=== PATIENT | male | born 1970 | race Hispanic/Latino ===

== ENCOUNTER 2017-07-13 10:51 | Emergency (ER) | payer OTHER ==
[2017-07-13 10:58] VITALS: BP 174/98
[2017-07-13] MEDS ORDERED: AUGMENTIN 875 MG PO ONE (11:12)
--- NOTE | 2017-07-13 11:13 | Emergency Department Report ---
ED Animal Bite HPI - General Chief Complaint: Animal Bite Stated Complaint: ATTACKED BY DOG Time Seen by Provider: 07/13/17 11:08 Source: patient Mode of arrival: Ambulatory Limitations: No Limitations - History of Present Illness Initial Comments: 46-year-old malesignificant past medical history presents with complaint of dog bite to right ankle. Patient states that he was walking with a friend who was walking her dog. Patient states another dog randomly came up and started fighting with the other dog. He got in the middle and was bitten on the right ankle by the stray dog. Patient is not fully familiar with this animal and states it was not initially sure with an retail business development manager. Patient denies injuries to any other body parts other than to right ankle. Unaware of tetanus status. Denies any allergies. Visible large multiple lacerations to right ankle region. Patient states that he made a report with animal control who identified animal and its retail business development manager. MD Complaint: animal bite -: This morning Location: other Right: Ankle Animal: dog Animal Control Notified: Yes Description: unknown animal Mechanism: bite Pain Description: sharp Context: animals fighting Associated Symptoms: none, bleeding - Related Data Patient Tetanus UTD: No Previous Rx's Medication Instructions Recorded Last Taken Type Acetaminophen/Codeine [Tylenol 1 tab PO Q6H PRN #12 tab 07/13/17 Unknown Rx /Codeine # 3 tab] Amoxicillin/K Clav Tab [Augmentin 1 tab PO Q12HR #20 tab 07/13/17 Unknown Rx 875 mg] Bacitracin Zinc Oint [Antibiotic 1 applicatio TP BID #1 oint...g. 07/13/17 Unknown Rx Oint] Ibuprofen [Motrin] 800 mg PO Q8HR PRN #30 tablet 07/13/17 Unknown Rx Allergies Allergy/AdvReac Type Severity Reaction Status Date / Time No Known Allergies Allergy Verified 07/13/17 11:27 ED Review of Systems ROS: Stated complaint: ATTACKED BY DOG Other details as noted in HPI Constitutional: denies: chills, fever Eyes: denies: eye pain, eye discharge, vision change ENT: denies: ear pain, throat pain Respiratory: denies: cough, shortness of breath, wheezing Cardiovascular: denies: chest pain, palpitations Endocrine: no symptoms reported Gastrointestinal: denies: abdominal pain, nausea, diarrhea Genitourinary: denies: urgency, dysuria Musculoskeletal: denies: back pain, joint swelling, arthralgia Skin: denies: rash, lesions Neurological: denies: headache, weakness, paresthesias Psychiatric: denies: anxiety, depression Hematological/Lymphatic: denies: easy bleeding, easy bruising ED Past Medical Hx - Past Medical History Previous Medical History?: No - Surgical History Additional Surgical History: hernia repair - Social History Smoking Status: Current Every Day Smoker Substance Use Type: Marijuana - Medications Home Medications: Home Medications Medication Instructions Recorded Confirmed Last Taken Type Acetaminophen/Codeine [Tylenol 1 tab PO Q6H PRN #12 tab 07/13/17 Unknown Rx /Codeine # 3 tab] Amoxicillin/K Clav Tab [Augmentin 1 tab PO Q12HR #20 tab 07/13/17 Unknown Rx 875 mg] Bacitracin Zinc Oint [Antibiotic 1 applicatio TP BID #1 oint...g. 07/13/17 Unknown Rx Oint] Ibuprofen [Motrin] 800 mg PO Q8HR PRN #30 tablet 07/13/17 Unknown Rx ED Physical Exam - General Limitations: No Limitations General appearance: alert, in no apparent distress - Head Head exam: Present: atraumatic, normocephalic - Eye Eye exam: Present: normal appearance, PERRL, EOMI - ENT ENT exam: Present: mucous membranes moist - Neck Neck exam: Present: normal inspection - Respiratory Respiratory exam: Present: normal lung sounds bilaterally. Absent: respiratory distress - Cardiovascular Cardiovascular Exam: Present: regular rate, normal rhythm. Absent: systolic murmur, diastolic murmur, rubs, gallop - GI/Abdominal GI/Abdominal exam: Present: soft, normal bowel sounds - Rectal Rectal exam: Present: deferred - Extremities Exam Extremities exam: Present: normal inspection - Expanded Lower Extremity Exam Right Knee exam: Present: normal inspection, full ROM Lower Leg exam: Present: normal inspection, full ROM, laceration (27-8 cm vertical lacerations on the right ankle region one on front of ankle one on the back of her ankle.) Ankle exam: Present: full ROM (dorsiflexion and plantar flexion intact on clinical exam), abrasion (abrasion behind the right ankle approximately 2 cm in length deep), laceration Foot/Toe exam: Present: normal inspection, full ROM Neuro vascular tendon exam: Present: no vascular compromise (distal dorsalis pedis and posterior tibial pulses intact) Gait: Positive: antalgic 1 - Laceration here 2 - Laceration here - Back Exam Back exam: Present: normal inspection - Neurological Exam Neurological exam: Present: alert, oriented X3, CN II-XII intact, abnormal gait - Psychiatric Psychiatric exam: Present: normal affect, normal mood - Skin Skin exam: Present: warm, dry, intact, normal color. Absent: rash ED Course Vital Signs 07/13/17 10:53 Temperature 97.7 F Pulse Rate 124 H Respiratory 20 Rate Blood Pressure 174/98 O2 Sat by Pulse 98 Oximetry - Laceration /Wound Repair Right Lower Distal Ankle Wound Location: lower extremity (2 vertical lacerations distal right lower ankle ) Wound Length (cm): 8 Wound's Depth, Shape: into muscle, linear, contused tissue Irrigated w/ Saline (ccs): 1,000 Betadine Prep?: Yes Anesthesia: 1% Lidocaine Volume Anesthetic (ccs): 30 Wound Debrided: minimal Wound Repaired With: sutures Suture Size/Type: 3:0, proline Number of Sutures: 8 Layer Closure?: No Sterile Dressing Applied?: Yes Progress: Bite sites thoroughly irrigated with saline and iodine mixture around and intermittent. Wounds and anesthetized with 2% lidocaine without epinephrine. Good local anesthesia achieved. There are 2 vertical lacerations one on front of ankle 1 embankment ankle approximately 6-8 cm each. Slightly contused tissue. No active hemorrhage. Wounds loosely approximated using Prolene sutures. Procedure tolerated well. Covered with gauze and triple antibiotic ointment afterward. Critical Care Time: Yes Critical care time in (mins) excluding proc time.: 90 Critical care attestation.: If time is entered above; I have spent that time in minutes in the direct care of this critically ill patient, excluding procedure time. A/P: Dog bite right ankle, laceration, puncture wound, abrasion 1-patient states that he discussed the case with animal control informed him that animal has an retail business development manager and can be reliably observed. This is unconfirmed but animal may have its vaccinations. Patient received first dose of rabies vaccine but declined rabies immunoglobulin due to his discussion with animal control. Patient received tetanus vaccination today 2-loose approximation of wound with Prolene sutures. I specifically advised patient to return to the ED for fever or chills. When drainage from wound or erythema spreading around site of wound. 48-72 hour wound check in the ED. sutures to be removed in 10-12 days 3-triple antibiotic ointment superficially, 10 day course of Augmentin, Motrin, [place] when necessary 4- patient is ambulatory without assistance VS: before discharge T 98.7oral, o2 sat 100%, HR 96, BP 145/96, RR 17 I asked police crime scene technician to record these in chart. ED Disposition Clinical Impression: Laceration Dog bite of right ankle Qualifiers: Encounter type: initial encounter Qualified Code(s): S91.051A - Open bite, right ankle, initial encounter Abrasion of ankle Qualifiers: Encounter type: initial encounter Laterality: right Qualified Code(s): S90.511A - Abrasion, right ankle, initial encounter Disposition: TO HOME OR SELFCARE Is pt being admited?: No Does the pt Need Aspirin: No Condition: Stable Instructions: Animal Bite (ED), Suture Care (ED), Puncture Wound (ED), Acute Wound Care (ED), Abrasion (ED) Additional Instructions: 48-72 hour wound check in the ED. sutures to be removed in 10-12 days Prescriptions: Acetaminophen/Codeine [Tylenol /Codeine # 3 tab] 1 tab PO Q6H PRN #12 tab PRN Reason: Pain Amoxicillin/K Clav Tab [Augmentin 875 mg] 1 tab PO Q12HR #20 tab Bacitracin Zinc Oint [Antibiotic Oint] 1 applicatio TP BID #1 oint...g. Ibuprofen [Motrin] 800 mg PO Q8HR PRN #30 tablet PRN Reason: Pain Referrals: PRIMARY CARE, [Primary Care Provider] - 3-5 Days [facility] [Outside] - 3-5 Days Forms: Accompanied Note, Work/School Release Form(ED) Time of Disposition: 13:29
[2017-07-13] MEDS ORDERED: XYLOCAINE 2% INFILTRATI ONE (11:14)
[2017-07-13] MEDS ORDERED: ZOFRAN ODT PO ONE (11:15)
[2017-07-13] MEDS ORDERED: BOOSTRIX IM ONE (11:15)
[2017-07-13] MEDS ORDERED: TRIPLE ANTIBIOTIC TP ONE (11:15)
[2017-07-13] MEDS ORDERED: NORCO 5/325 PO ONE (11:15)
[2017-07-13] MEDS ORDERED: MOTRIN PO ONE (11:16)
[2017-07-13] MEDS ORDERED: RABAVERT RABIES VACCINE(PCEC) IM ONE (11:23)
[2017-07-13] MEDS ORDERED: hyperRAB S/D IM ONE (11:23)
--- NOTE | 2017-07-13 20:19 | XRay Report ---
FINAL REPORT PROCEDURE: XR ANKLE 3+V RT TECHNIQUE: Three-view right ankle HISTORY: dog bite above right ankle COMPARISON: No prior studies are available for comparison. FINDINGS: Mild soft tissue swelling right ankle with soft tissue laceration injury and defects seen medially. Soft tissue gas suspected in the deep superficial planes of the distal calf and posterior ankle area IMPRESSION: Soft tissue findings as described. No acute fracture or foreign body seen.
== END 2017-07-13 13:42 | disposition home or self-care (01) ==
LOC: ED 10:51
DX: S91.011A Laceration without foreign body, right ankle, initial encounter (principal); F17.200 Nicotine dependence, unspecified, uncomplicated; F12.10 Cannabis abuse, uncomplicated; W54.0XXA Bitten by dog, initial encounter; Y93.89 Activity, other specified; Y92.89 Other specified places as the place of occurrence of the external cause; Y99.8 Other external cause status
CPT/HCPCS: 90375; 90471; 90472; 90675; 90715; 96372; 99283; A6250; Q0162

== ENCOUNTER 2017-07-28 12:29 | Emergency (ER) | payer OTHER ==
[2017-07-28 13:35] VITALS: BP 159/94
--- NOTE | 2017-07-28 17:02 | Emergency Department Report ---
Suture/Staple Removal - [facility] Chief Complaint: Laceration/Recheck/Suture Stated Complaint: STUTURE REMOVAL Time Seen by Provider: 07/28/17 15:29 When Sutures or Tana Placed: >14 Days Ago Wound Location: left ankle region ED Review of Systems ROS: Stated complaint: STUTURE REMOVAL Other details as noted in HPI Constitutional: denies: chills, fever Eyes: denies: eye pain, eye discharge, vision change ENT: denies: ear pain, throat pain Respiratory: denies: cough, shortness of breath, wheezing Cardiovascular: denies: chest pain, palpitations Endocrine: no symptoms reported Gastrointestinal: denies: abdominal pain, nausea, diarrhea Genitourinary: denies: urgency, dysuria Musculoskeletal: denies: back pain, joint swelling, arthralgia Skin: denies: rash, lesions Neurological: denies: headache, weakness, paresthesias Psychiatric: denies: anxiety, depression Hematological/Lymphatic: denies: easy bleeding, easy bruising ED Past Medical Hx - Past Medical History Previous Medical History?: Yes Additional medical history: Right leg-dog bite - Surgical History Past Surgical History?: Yes Additional Surgical History: hernia repair - Social History Smoking Status: Current Every Day Smoker Substance Use Type: Alcohol, Prescribed - Medications Home Medications: Home Medications Medication Instructions Recorded Confirmed Last Taken Type Acetaminophen/Codeine [Tylenol 1 tab PO Q6H PRN #12 tab 07/13/17 Unknown Rx /Codeine # 3 tab] Amoxicillin/K Clav Tab [Augmentin 1 tab PO Q12HR #20 tab 07/13/17 Unknown Rx 875 mg] Bacitracin Zinc Oint [Antibiotic 1 applicatio TP BID #1 oint...g. 07/13/17 Unknown Rx Oint] Ibuprofen [Motrin] 800 mg PO Q8HR PRN #30 tablet 07/13/17 Unknown Rx Sulfamethoxazole/Trimethoprim 1 each PO Q12H #14 tablet 07/28/17 Unknown Rx [Bactrim Ds Tablet] Suture Removal Exam - Exam General: Vital signs noted. No distress. Alert and acting appropriately. GENERAL: The patient is a well-developed, well-nourished in no apparent distress. Patient is alert and acting appropriately for age. Alert and oriented 3, no apparent distress, normal gait, atraumatic. HEENT: Head is normocephalic and atraumatic. PERRL, Extraocular muscles are intact. Pupils are equal, round, and reactive to light and accommodation. Nares appeared normal. Mouth is well hydrated and without lesions. Mucous membranes are moist. Posterior pharynx clear of any exudate or lesions. Mouth is well hydrated and without lesions. Tonsils not erythematous or swollen. Uvula midline. Tongue elevated. Mucous members are moist. Posterior pharynx clear, no exudate or lesions. Patent airways. NECK: Supple. No carotid bruits. No lymphadenopathy or thyromegaly.nontender. No meningitic signs are noted. LUNGS: Clear to auscultation. Non labor breathing. No intercostal retractions. Symmetrical with respiration, no wheezing, no rales, or crackles. HEART: Regular rate and rhythm without murmur, rubs or gallops. No reproducible. S1, S2 present, regular rate and rhythm without murmur, no rubs, no gallops. ABDOMEN: Soft, nontender, and nondistended. Positive bowel sounds. No hepatosplenomegaly was noted. No guarding or rebound tenderness, negative epigastric bruit. Negative psoas sign, negative barnett sign, negative McBurneys sign EXTREMITIES: Without any cyanosis, clubbing, rash, lesions or edema. Peripheral pulses intact. Capillary refill less than 2 seconds. Full range of motion bilaterally. NEUROLOGIC: Cranial nerves II through XII are grossly intact. Alert and oriented x 3. Normal gait. Symmetrical strength and sensation. Reflexes 2+ throughout. Cerebellar testing normal. GCS score of 15. PSYCHIATRIC: Normal affect with no suicidal or homicidal ideations. Skin: 1) 8 cm sutured lac to the right ankle region with total of 8 sutures presents. There is pus, drainage, and erythema noted. No swelling or abscess noted. Wound: Yes Pathologic Erythema, Yes Tenderness, Yes Drainage, Yes Pus, No Wound Dehiscence Other Systems: All other systems reviewed and are unremarkable. ED Course Vital Signs 07/28/17 13:32 Temperature 98.1 F Pulse Rate 108 H Respiratory 18 Rate Blood Pressure 159/94 O2 Sat by Pulse 98 Oximetry - Reevaluation(s) Reevaluation #1: 07/28/17 17:18 Patient is speaking in full sentences with no signs of distress noted. ED Recheck MDM - Medical Decision Making This is a 46-year-old male that presents with suture removal. Patient is stable and was examined by me. The area has purulent drainage, erythema noted. There is no abscess formation or swelling. Total of 8 stitches have been removed. Patient stated he currently finished his antibiotics, Augmentin. I will treat patient with Bactrim and discharge and patient was instructed to proper wound care. Area has been cleaned with soap and water. A sterile for 4 x 4 dressing has been applied. Patient stated that animal control contacted and the dog was up-to-date rabies vaccine and has no relief. Patient was instructed to return in 48-72 hours for reassessment of the wound. Patient was also instructed Follow-up with a primary care doctor in 3-5 days or if symptoms worsen and continue return to emergency room as soon as possible. At time time of discharge, the patient does not seem toxic or ill in appearance. No acute signs of distress noted. Patient agrees to discharge treatment plan of care. No further questions noted by the patient. Critical care attestation.: If time is entered above; I have spent that time in minutes in the direct care of this critically ill patient, excluding procedure time. ED Disposition Clinical Impression: Visit for suture removal Cellulitis Qualifiers: Site of cellulitis: extremity Site of cellulitis of extremity: lower extremity Laterality: left Qualified Code(s): L03.116 - Cellulitis of left lower limb Disposition: DC-01 TO HOME OR SELFCARE Is pt being admited?: No Does the pt Need Aspirin: No Condition: Stable Instructions: Suture Removal (ED), Sulfamethoxazole/Trimethoprim (By mouth), Acute Wound Care (ED) Additional Instructions: Return in 48-72 hours for a reassessment of the wound. Keep area Clean and wash daily with soap and water. Follow-up with a primary care doctor in 3-5 days or if symptoms worsen and continue return to emergency room as soon as possible. Prescriptions: Sulfamethoxazole/Trimethoprim [Bactrim Ds Tablet] 1 each PO Q12H #14 tablet Referrals: MIRIAN ERNANDEZ MD [Primary Care Provider] - 3-5 Days ROGER MARTINEZ MD [Staff Physician] - 3-5 Days PRIMARY CARE, [Referring] - 3-5 Days [facility] [Outside] - 3-5 Days [facility] [Outside] - 3-5 Days Forms: Work/School Release Form(ED)
== END 2017-07-28 17:39 | disposition home or self-care (01) ==
LOC: ED 12:29
DX: L03.116 Cellulitis of left lower limb (principal); F17.200 Nicotine dependence, unspecified, uncomplicated
CPT/HCPCS: 99282

== ENCOUNTER 2021-05-20 06:28 | Day surgery (SDC) | payer OTHER ==
[2021-05-20] MEDS ORDERED: ASPIRIN EC 325 MG TAB PO NR (06:51)
[2021-05-20] MEDS ORDERED: SODIUM CHLORIDE 0.9% 500 ML 500 ML IV SCH (07:00)
[2021-05-20 07:16] LABS: Basophils % (Auto) 0.5 % (0.0-1.8); Eosinophils # (Auto) 0.1 K/mm3 (0.0-0.4); Eosinophils % (Auto) 1.2 % (0.0-4.3); Hemoglobin 13.9 gm/dl (11.8-15.2); Lymphocytes # (Auto) 1.7 K/mm3 (1.2-5.4); Lymphocytes % (Auto) 28.6 % (13.4-35.0); Mean Corpuscular HGB Conc 33 % (32-34); Mean Corpuscular Volume 99 fl (84-94); Monocytes # (Auto) 0.5 K/mm3 (0.0-0.8); Monocytes % (Auto) 8.3 % (0.0-7.3); Platelet Count 196 K/mm3 (140-440); Red Blood Count 4.25 M/mm3 (3.65-5.03); Red Cell Distribution Width 12.8 % (13.2-15.2)
[2021-05-20 07:26] LABS: INR 0.88 (0.87-1.13)
[2021-05-20 07:28] LABS: BUN/Creatinine Ratio 13; Blood Urea Nitrogen 10 mg/dL (9-20); Calcium 9.4 mg/dL (8.4-10.2); Hemolysis Index 6
[2021-05-20] MEDS: fentaNYL 100 MCG/2 ML INJ ONE ×2 (08:52→10:15)
[2021-05-20] MEDS: LIDOCAINE (2%) 20 MG/1 ML VIAL 20 ML MDV INFILTRATI ONE ×2 (08:53→10:17)
[2021-05-20] MEDS: MIDAZOLAM 2 MG/2 ML INJ ONE ×2 (08:53→10:15)
[2021-05-20] MEDS: HEPARIN 10,000 UNITS/10 ML VIAL ONE ×2 (08:54→10:18)
[2021-05-20] MEDS: VERAPAMIL 5 MG/2 ML INJ ONE ×2 (08:56→10:18)
[2021-05-20] MEDS: NITROGLYCERIN SYRINGE 3 ML ONE ×2 (08:57→10:19)
[2021-05-20] MEDS: HEPARIN/NS 5000 UNIT/500ML 1,000 ML IR ONE ×2 (08:58→10:19)
--- NOTE | 2021-05-20 10:57 | Discharge Summary ---
Short Stay Discharge Plan Activity: advance as tolerated Weight Bearing Status: Full Weight Bearing Diet: low fat, low cholesterol, low salt Wound: keep clean and dry Special Instructions: smoking cessation, no heavy lifting (3 days) Follow up with: THA SANCHEZ MD [Primary Care Provider] - 7 Days NADEEM TIERNEY MD [Staff Physician] - 7 Days
--- NOTE | 2021-05-20 10:58 | Cardiac Catherization Report ---
DATE OF SERVICE: 05/20/2021 CARDIAC CATHETERIZATION REPORT REASON FOR PROCEDURE: The patient is a 50-year-old man who underwent preoperative cardiac evaluation for hernia surgery. A thallium stress test was abnormal with a moderate to large inferior defect. He was recommended for diagnostic coronary angiography. PROCEDURES: 1. Left heart catheterization. 2. Selective left and right coronary angiography. 3. Left ventricular angiography. 4. Sedation time start 1015 hours, end 1031 hours. DESCRIPTION OF PROCEDURE: The patient was prepped and draped in a sterile fashion after informed consent. The right radial cath site was prepped and draped after negative Slim's test. The right radial artery was entered using Seldinger technique followed by placement of a 6-[place] hydrophilic sheath. Routine radial cocktail was administered via the sheath. Selective left and right coronary angiography was performed using a #3.5 left Dolly and a #4 right Dolly. The pigtail catheter was used for left ventricular angiography. The catheters were then removed, sheath removed and hemostasis was achieved using a TR band. The patient was returned to the postprocedure unit in stable condition. There were no complications. FINDINGS: HEMODYNAMICS: Left ventricular end-diastolic pressure was 15. Ascending aortic pressure 111/66. There was no significant pressure gradient on pullback across the aortic valve. CORONARY ANGIOGRAPHY: There was moderate diffuse coronary calcification. The left main coronary artery was free of significant disease. The left anterior descending artery contained diffuse mild atherosclerosis of its proximal and mid segments, associated with diffuse moderate calcification. There was an up to 20-30% luminal stenosis of the proximal LAD, followed by another 20-30% luminal narrowing of the mid segment. Otherwise, the LAD and diagonal branches were widely patent. The circumflex artery was a large system that contained diffuse mild atherosclerosis of its mid and distal segments. The right coronary artery was also a large caliber vessel, and was dominant. There was a 20-30% luminal stenosis of the mid vessel, otherwise this vessel and its branches were also widely patent. Left ventricular systolic function was within normal limits, ejection fraction 55%. CONCLUSION: 1. Mild diffuse nonobstructive atherosclerosis as detailed above. 2. No significant obstructive coronary lesions. 3. Well preserved left ventricular systolic function with ejection fraction of 55%. RECOMMENDATIONS: 1. Aggressive risk factor modification including smoking cessation is advised. 2. The patient is stable to proceed with planned hernia surgery. TID: [id number] RECEIPT: [id number] WAGNER RAWLSD
[2021-05-20] MEDS ORDERED: SODIUM CHLORIDE 0.9% 1000 ML 1,000 ML IV SCH (11:00)
[2021-05-20] MEDS ORDERED: traMADol 50 MG TAB PO PRN (11:30)
[2021-05-20 13:46] VITALS: BP 136/72
--- NOTE | 2021-05-20 19:20 | Electrocardiograph Report ---
[facility] Test Date: 2021-05-20 Test Time: 07:48:01 Pat Name: IRENE RUBIO Department: Room: Gender: M Do All Operator: LEA : 1970 Requested By: [place] TIERNEY Order Number: [id number] Reading MD: [place] Tierney Measurements Intervals [place] Rate: 64 P: -6 NM: 123 QRS: 86 QRSD: 101 T: 58 QT: 395 QTc: 408 Interpretive Statements Sinus rhythm No previous ECG available for comparison Electronically Signed On 05-20-2021 19:19:57 EDT by [place] Tierney
== END 2021-05-20 12:04 | disposition home or self-care (01) ==
LOC: CATHLABREC 06:28
PROVIDERS: ATTEND Internal Medicine Cardiovascular Disease
DX: R94.39 Abnormal result of other cardiovascular function study (principal); I10 Essential (primary) hypertension; J44.9 Chronic obstructive pulmonary disease, unspecified; F17.210 Nicotine dependence, cigarettes, uncomplicated; Z79.899 Other long term (current) drug therapy; Z98.890 Other specified postprocedural states; Z82.49 Family history of ischemic heart disease and other diseases of the circulatory system; Z79.01 Long term (current) use of anticoagulants
CPT/HCPCS: 36415; 80048; 85025; 85610; 85730; 93005; 93458; 99156; C1894; J1644; J2250; J3010; J7040; Q9967